=== PATIENT | female | born 1945 | race Caucasian/White ===

== ENCOUNTER 2018-02-11 05:30 | Emergency (ER) | payer OTHER ==
[~2018-02-11] VITALS: Ht 162.6 cm; Wt 89.8 kg
[~2018-02-11 05:30] MED LIST: AMLO2.5T3; DIPH25CA83; LORA-259
[2018-02-11 06:25] LABS: APPEARANCE,URINE CLEAR (CLEAR); BILIRUBIN,URINE NEGATIVE (NEGATIVE); BLOOD, URINE NEGATIVE Ery/uL (NEGATIVE); COLOR,URINE YELLOW (YELLOW); KETONES,URINE NEGATIVE (NEGATIVE); LEUKOCYTE ESTERASE ,URINE NEGATIVE (NEGATIVE); NITRITE, URINE NEGATIVE (NEGATIVE); PROTEIN,URINE 1+ mg/dl (NEGATIVE); UGLUCOSE NEGATIVE (NEGATIVE); UROBILINOGEN,URINE 0.2 EU/dL (0.2)
[2018-02-11 06:36] LABS: BACTERIA,URINE Rare /HPF (None Seen); RBC,URINE 0-2 /HPF (0-2); SQUAMOUS EPITHELIAL CELL,UR Rare /HPF (None Seen); WBC,URINE 0-2 /HPF (0-3)
[2018-02-11 07:11] VITALS: BP 141/70
--- NOTE | 2018-02-11 07:12 | NUR ---
Patient discharged to home in stable condition. Written and verbal after care instructions given. Patient verbalizes understanding of instruction. PT ambulated out with steady gait noted
== END 2018-02-11 07:13 | disposition home or self-care (01) ==
LOC: ER 05:32
DX: F41.9 Anxiety disorder, unspecified (principal); I10 Essential (primary) hypertension; R11.2 Nausea with vomiting, unspecified; J45.909 Unspecified asthma, uncomplicated; Z90.13 Acquired absence of bilateral breasts and nipples; Z90.89 Acquired absence of other organs; Z85.3 Personal history of malignant neoplasm of breast; Z98.890 Other specified postprocedural states; Z88.8 Allergy status to other drugs, medicaments and biological substances; Z88.1 Allergy status to other antibiotic agents; Z60.2 Problems related to living alone; Z79.899 Other long term (current) drug therapy
CPT/HCPCS: 81000-TC; A4606; Z7610

== ENCOUNTER 2018-03-01 21:08 | Inpatient (IN) | payer BC, OTHER ==
[~2018-03-01] VITALS: Ht 162.6 cm; Wt 88.5 kg
[~2018-03-01 21:08] MED LIST changes: -AMLO2.5T3; +AMLO2.5T4
--- NOTE | 2018-03-01 21:10 | NUR ---
PT BIB RA. COMP OF HAVING "CHEST HEAVYNESS". NO SOB NOTED. NO ACTE DISTRESS AT THIS TIME. PT FELT CHEST HEAVYNESS SINCE 1800 TODAY. AND LAST NIGHT. AWAITING MD LAMBERT
[2018-03-01 22:00] LABS: BASOPHILS # (AUTO) 0.1 /CMM (0.0-0.2); BASOPHILS % (AUTO) 0.8 % (0.0-2.0); EOSINOPHILS % (AUTO) 1.1 % (0.0-6.0); HEMATOCRIT 43 % (33-45); HEMOGLOBIN 14.6 g/dL (11.5-14.8); LYMPHOCYTES # (AUTO) 3.1 /CMM (0.8-4.8); MEAN CORPUSCULAR HGB CONC 34 g/dl (31.0-36.0); MEAN CORPUSCULAR VOLUME 86 fL (82-100); MONOCYTES # (AUTO) 0.6 /CMM (0.1-1.30); MONOCYTES % (AUTO) 6.2 % (2.0-12.0); NEUTROPHILS # (AUTO) 5.6 /CMM (1.8-8.9); NEUTROPHILS % (AUTO) 58.9 % (43.0-81.0); PLATELET COUNT (AUTO) 397 /CMM (150-450); RED BLOOD CELL COUNT(AUTO) 5.04 MIL/uL (4.0-5.2); WHITE BLOOD COUNT (AUTO) 9.5 K/uL (4.3-11.0)
[2018-03-01 22:13] LABS: CALCIUM, SERUM 9.7 mg/dL (8.5-10.1); CARBON DIOXIDE 26 mmol/L (21-32); CHLORIDE 102 mmol/L (98-107); CREATININE 0.8 mg/dL (0.6-1.3); GLUCOSE 121 mg/dL (74-106); POTASSIUM 3.6 mmol/L (3.5-5.1); SODIUM SERUM 139 mmol/L (136-145); UREA NITROGEN, BLOOD 16 mg/dL (7-18)
--- NOTE | 2018-03-01 23:01 | NUR ---
PT ASSIGNED TO 328-2
--- NOTE | 2018-03-01 23:39 | NUR ---
REPORT GIVEN TO NELLIE RODRÍGUEZ,.
[2018-03-02] MEDS ORDERED: NITROGLYCERIN 0.4 MG/TAB BOTTLE SL PRN
[2018-03-02] MEDS ORDERED: MAGNESIUM HYDROXIDE 30 ML UDC PO PRN
[2018-03-02] MEDS ORDERED: MORPHINE SULFATE INJ 4 MG/ML DISP.SYRIN IV PRN
[2018-03-02] MEDS ORDERED: MAG HYDROX/AL HYDROX/SIMETH 30 ML UDC PO PRN
[2018-03-02] MEDS ORDERED: ONDANSETRON HCL/PF 4 MG/2 ML VIAL IVP PRN
[2018-03-02] MEDS ORDERED: ACETAMINOPHEN 325 MG TABLET PO PRN
[2018-03-02] MEDS ORDERED: ZOLPIDEM TARTRATE 5 MG TABLET PO PRN
[2018-03-02] MEDS ORDERED: Z GUARD REMEDY 2 OZ OINT TP PRN
[2018-03-02] MEDS ORDERED: HYDROCODONE/APAP 5/325MG 1 EACH TABLET PO PRN
--- NOTE | 2018-03-02 00:22 | NUR ---
RN NOTES RECEIVED PT. FROM ER WITH DX. OF CHEST PAIN, PT. IS A/OX4, AMBULATORY, HER COUSIN AT BEDSIDE, SR ON TELE MONITOR HR-98, DENIES PAIN, NO SOB, ADMISSION INSTRUCTION WAS RENDERED, CALL LIGHT WITHIN REACH, SIDERAILSUPX2, CONTINUE TO MONITOR
[2018-03-02 00:25] VITALS: BP 146/91
[2018-03-02 04:00] VITALS: BP 158/81
[2018-03-02 06:13] LABS: BASOPHILS % (AUTO) 0.6 % (0.0-2.0); EOSINOPHILS % (AUTO) 0.4 % (0.0-6.0); HEMATOCRIT 42 % (33-45); HEMOGLOBIN 14.4 g/dL (11.5-14.8); LYMPHOCYTES # (AUTO) 2.2 /CMM (0.8-4.8); LYMPHOCYTES % (AUTO) 27.9 % (20.0-44.0); MEAN CORPUSCULAR HGB CONC 34 g/dl (31.0-36.0); MEAN CORPUSCULAR VOLUME 85 fL (82-100); MONOCYTES # (AUTO) 0.4 /CMM (0.1-1.30); MONOCYTES % (AUTO) 4.8 % (2.0-12.0); NEUTROPHILS # (AUTO) 5.2 /CMM (1.8-8.9); NEUTROPHILS % (AUTO) 66.3 % (43.0-81.0); PLATELET COUNT (AUTO) 377 /CMM (150-450); RED BLOOD CELL COUNT(AUTO) 4.92 MIL/uL (4.0-5.2); WHITE BLOOD COUNT (AUTO) 7.9 K/uL (4.3-11.0)
--- NOTE | 2018-03-02 06:32 | NUR ---
RN NOTES AWAKE, DENIES PAIN, NO SOB,PT. STATED SHE FEELS BETTER, CALL LIGHT WITHIN REACH, SIDERAILSUPX2, PT. NEEDS ATTENDED
[2018-03-02 06:36] LABS: CALCIUM, SERUM 9.6 mg/dL (8.5-10.1); CREATININE 0.7 mg/dL (0.6-1.3); MAGNESIUM 2.1 mg/dL (1.8-2.4); PHOSPHORUS 3.9 mg/dL (2.5-4.9)
[2018-03-02 06:50] LABS: THYROID STIMULATING HORMONE 4.589 uIU/mL (0.358-3.74)
[2018-03-02] MEDS ORDERED: ESCI20TA PO (07:18)
--- NOTE | 2018-03-02 07:50 | NUR ---
CANNERY WORKER OPENING NOTE RECEIVED PATIENT AWAKE IN BED LOCKED IN LOWEST POSITION WITH SIDERAILS UP x2. NO FACIAL GRIMACING NOTED AT THIS TIME. NO SOB OR DISTRESS NOTED ON ROOM AIR TOLERATING WELL WITH 98%. ABLE TO COMMUNICATE NEEDS. IV ON RIGHT AC INTACT AND PATENT NO REDNESS OR SWELLING NOTED. CALL LIGHT WITHIN REACH. NO CHEST PAIN NOTED AT THIS TIME. AWAITING FOR CARDIO CONSULT. WILL CONTINUE TO MONITOR THROUGHOUT SHIFT Addendum: 03/02/18 at 1016 by SARAH BURGOS RN TELE MONITOR- SR 90S
[2018-03-02 08:00] VITALS: BP 172/83
[2018-03-02] MEDS ORDERED: DILTIAZEM HCL CD 240 MG PO SCH (09:00)
[2018-03-02] MEDS ORDERED: VALSARTAN 80 MG TABLET PO SCH (09:00)
[2018-03-02] MEDS ORDERED: ASPIRIN EC 81 MG TABLET.DR PO SCH (09:00)
--- NOTE | 2018-03-02 10:13 | NUR ---
RN NOTE CONSENT OBTAINED FOR CT ANGIO HEART WITH 3D IMAGE. PLACED IN CHART
[2018-03-02] MEDS ORDERED: IV NS 0.9% 250 ML IV ONE (12:45)
[2018-03-02] MEDS ORDERED: IOHEXOL-350 100 ML VIAL IV ONE (12:45)
[2018-03-02] MEDS ORDERED: CT SWABBABLE VALVE TRANS SET 1 EA INFUS.SET MC ONE (12:45)
[2018-03-02] MEDS ORDERED: LORAZEPAM 1 MG TABLET PO ONE (13:00)
[2018-03-02] MEDS ORDERED: LORAZEPAM 0.5 MG TABLET PO ONE (13:00)
[2018-03-02] MEDS ORDERED: METOPROLOL TARTRATE INJ 5 MG/5 ML AMPUL ONE ×5 (13:02→13:55)
--- NOTE | 2018-03-02 13:30 | NUR ---
MS RN NOTE PATIENT HEADED DOWN FOR CT SCAN. WILL RESUME CARE WHEN PATIENT RETURNS TO UNIT. PATIENT STABLE AT THIS TIME.
--- NOTE | 2018-03-02 14:27 | NUR ---
MS RN NOTE PATIENT BACK FROM CT SCAN. PATIENT IN STABLE CONDITION
--- NOTE | 2018-03-02 15:48 | NUR ---
MS RODRÍGUEZ NOTE INFORMED VONNIE NUNEZ NP ABOUT CTA RESULTS. AWAITING CLEARANCE FROM DR HOLMAN Addendum: 03/02/18 at 1552 by SARAH BURGOS RN PAGED DR HOLMAN AWAITING CALL BACK
[2018-03-02 16:00] VITALS: BP 107/65
--- NOTE | 2018-03-02 16:10 | NUR ---
SAL RODRÍGUEZ NOTE PER DR HOLMAN CLEARED FOR DISCHARGE Addendum: 03/02/18 at 1622 by SARAH BURGOS RN MS
--- NOTE | 2018-03-02 17:25 | NUR ---
SYSTEM CONSULTANT NOTE PATIENT LEFT IN STABLE CONDITION TO HOME, NO CHEST PAIN NOTED. NO FACIAL GRIMACING NOTED FOR PAIN. NO SOB OR DISTRESS NOTED ON ROOM AIR TOLERATING WELL. ABLE TO COMMUNICATE NEEDS. IV REMOVED AND SKIN INTACT. ALL DUE MEDICATIONS GIVEN ORDERED. ALL NURSING CARE NEEDS ATTENDED TO NEEDED. LEFT VIA PRIVATE CAR. ALL DISCHARGE INSTRUCTIONS GIVEN TO PATIENT AND TEACH BACK RECEIVED. FOLLOW UP APPT WITH PCP AND DR. HOLMAN IN ONE WEEK.
[2018-03-02] MEDS ORDERED: SIMVASTATIN 20 MG TABLET PO SCH (22:00)
== END 2018-03-02 17:25 | disposition home or self-care (01) | DRG 206 ==
LOC: ER 21:15 → TELE 03-02 00:12 → MED 03-02 10:34
PROVIDERS: ATTEND Registered Nurse
DX: M94.0 Chondrocostal junction syndrome [Tietze] (principal); I50.32 Chronic diastolic (congestive) heart failure; F41.9 Anxiety disorder, unspecified; F32.9 Major depressive disorder, single episode, unspecified; Z90.13 Acquired absence of bilateral breasts and nipples; Z85.3 Personal history of malignant neoplasm of breast; J45.909 Unspecified asthma, uncomplicated; I25.10 Atherosclerotic heart disease of native coronary artery without angina pectoris; I11.0 Hypertensive heart disease with heart failure
CPT/HCPCS: 36415; 71045-TC; 75574; 80048-TC; 80061-TC; 83735-TC; 83880; 84100-TC; 84443-TC; 84484-TC; 85025-TC; 85730-TC; 87081-TC; 93307-TC; G0378; J3490; J7050; Q9967